=== PATIENT | female | born 1985 | race Caucasian/White ===

== ENCOUNTER 2022-01-15 17:05 | Emergency (ER) | payer OTHER ==
[~2022-01-15] VITALS: Ht 175.3 cm; Wt 68.0 kg
[2022-01-15 17:15] VITALS: BP 114/63
[2022-01-15] MEDS ORDERED: BICT1TAB PO (18:10)
--- NOTE | 2022-01-15 18:27 | NUR ---
Patient discharged to home in stable condition. Written and verbal after care instructions given. Patient verbalizes understanding of instruction.
== END 2022-01-15 18:27 | disposition home or self-care (01) ==
LOC: ER 17:11
DX: Z02.89 Encounter for other administrative examinations (principal); Z76.0 Encounter for issue of repeat prescription